=== PATIENT | male | born 1955 | race Caucasian/White ===

== ENCOUNTER 2017-02-24 16:06 | Inpatient (IN) | payer OTHER ==
[~2017-02-24] VITALS: Ht 190.5 cm; Wt 139.6 kg
[2017-02-24 17:18] LABS: BASOPHIL COUNT 0.1 K/uL (0-0.1); EOSINOPHIL (%) 0.1 % (0-5); HEMATOCRIT 45.4 % (38.0-50.0); IMMATURE GRANULOCYTE (%) 4.8 % (0.0-0.7); IMMATURE GRANULOCYTE COUNT 0.4 K/uL; INSTRUMENT ABS NEUTROPHIL CT 5.3 K/uL; LYMPHOCYTE COUNT 0.7 K/uL (1.0-2.8); MCH 25.8 PG (29.0-34.0); MCHC 29.5 G/DL (30.0-36.0); MCV 87.3 FL (86-99); MEAN PLAT.VOLUME 12.4 uM^3 (9.0-12.4); MONOCYTE (%) 13.3 % (3-12); NEUTROPHIL (%) 71.1 % (45-76); NEUTROPHIL COUNT 5.3 K/uL (1.8-6.4); PLATELET COUNT 293 K/uL (156-360); RBC DIS.WIDTH-CV 18.3 % (11.8-14.6); RBC DIS.WIDTH-SD 57.7 % (39-53); WHITE BLOOD COUNT 7.5 K/uL (4.1-10.2)
[2017-02-24 17:19] LABS: CARBON DIOXIDE (BICARBONATE) 15.6 MEQ/L (20-31)
[2017-02-24 17:20] LABS: CHLORIDE 103 mEq/L (99-109); POTASSIUM 4.7 mEq/L (3.7-5.4); SODIUM 137 mEq/L (136-147)
[2017-02-24 17:24] LABS: ANION GAP 21 MEQ/L (2-14); GLUCOSE 611 mg/dL (70-99)
[2017-02-24 17:25] LABS: TOTAL BILIRUBIN 0.5 mg/dL (0.0-1.0)
[2017-02-24 17:26] LABS: ALKALINE PHOSPHATASE 73 IU/L (3-129); SERUM ETHYL ALCOHOL < 10 mg/dL
[2017-02-24 17:27] LABS: GFR ESTIMATE (CALCULATED) 31 mL/min/
[2017-02-24 17:28] LABS: UREA NITROGEN (BUN) 41 mg/dL (9-23)
[2017-02-24 17:30] LABS: CREATINE KINASE 77 IU/L (1-294); LIPASE 66 U/L (1.0-51.0)
[2017-02-24 17:32] LABS: TROP-I INTERPRETATION NEGATIVE; TROPONIN-I 0.03 ng/mL (0.0-0.30)
[2017-02-24] MEDS ORDERED: ADVAIR 500/501 DISK IH (19:43)
[2017-02-24] MEDS ORDERED: ALBUTEROL2.5 MG/3 M IH (19:44)
[2017-02-24] MEDS ORDERED: THEOPHYLLINE400 MG PO (19:45)
[2017-02-24] MEDS ORDERED: DUONEB 2.5-0.5 M3 ML AEROSOL (19:45)
[2017-02-24] MEDS ORDERED: PROAIR HFA8.5 GM IH (19:45)
[2017-02-24] MEDS ORDERED: ATORVASTATIN CA40 MG PO (19:46)
[2017-02-24] MEDS ORDERED: FLUOXETINE HCL20 M1 PO (19:46)
[2017-02-24] MEDS ORDERED: JANUVIA100 MG PO (19:46)
[2017-02-24] MEDS ORDERED: LISINOPRIL10 MG PO (19:46)
[2017-02-24] MEDS ORDERED: NEURONTIN100 MG PO (19:47)
[2017-02-24] MEDS ORDERED: PRANDIN2 MG PO (19:47)
[2017-02-24] MEDS ORDERED: METOCLOPRAMIDE10 MG PO (19:47)
[2017-02-24 19:53] LABS: Estimated Average Glucose 404 mg/dL (70-123)
[2017-02-24 19:56] LABS: HEMOGLOBIN A1c (GLYCOHEMOGLOB) 15.7 % HGB (Below 5.7)
[2017-02-24 20:12] LABS: POINT-OF-CARE METER ID UU13113702
[2017-02-24 20:12] LABS: ADD MIUA? YES; BILIRUBIN NEGATIVE; BLOOD SMALL; COLOR YELLOW ((YELLOW)); GLUCOSE (STRIP) >=500; KETONES 80; LEUKOCYTES NEGATIVE; NITRITE NEGATIVE; PROTEIN (STRIP) 30; SPECIFIC GRAVITY 1.026 (1.000-1.030); UROBILINOGEN 0.2 MG/DL (0.2-1.0)
[2017-02-24 20:15] VITALS: BP 129/65
[2017-02-24 20:19] VITALS: BP 129/65
[2017-02-24 20:31] LABS: AMPHETAMINE NEGATIVE (500 ng/mL); BARBITURATES NEGATIVE (200 ng/mL); BENZODIAZEPINES NEGATIVE (150 ng/mL); COCAINE NEGATIVE (150 ng/mL); INTERNAL CONTROLS VALID? YES; METHADONE NEGATIVE (200 ng/mL); METHAMPHETAMINE NEGATIVE (500 ng/mL); OPIATES (MORPHINE) NEGATIVE (100 ng/mL); OXYCODONE NEGATIVE (100 ng/mL); PHENCYCLIDINE NEGATIVE (25 ng/mL); PROPOXYPHENE NEGATIVE (300 ng/mL); THC CANNABINOIDS NEGATIVE (50 ng/mL); TRICYCLIC ANTIDEPRESSANTS NEGATIVE (300 ng/mL)
[2017-02-24 21:00] VITALS: BP 107/46
[2017-02-24 21:03] LABS: RED BLOOD CELLS NONE SEEN /HPF (0-5)
[2017-02-24 21:06] LABS: EPITHELIAL CELLS RARE /HPF; WHITE BLOOD CELLS RARE /HPF (0-5)
[2017-02-24 21:07] LABS: BACTERIA RARE /HPF; CASTS PRESENT /LPF; CRYSTALS NONE SEEN; MUCUS RARE /LPF; UCUL ADDED? NO
[2017-02-24 21:09] LABS: COARSE GRANULAR CASTS RARE /LPF; OTHER BUDDING YEAST OCC.
[2017-02-24 21:20] LABS: ANION GAP 16 MEQ/L (2-14); CHLORIDE 108 MEQ/L (99-109); MAGNESIUM 2.4 mg/dl (1.3-2.7); SAMPLE HEMOLYSIS CHECK 0; SAMPLE ICTERIC CHECK 0; SAMPLE LIPEMIA CHECK 0; SODIUM 139 MEQ/L (136-147)
[2017-02-24 21:25] LABS: GFR ESTIMATE (CALCULATED) 54 mL/min/; GLUCOSE 320 mg/dL (70-99); UREA NITROGEN (BUN) 38 mg/dL (9-23)
[2017-02-24 22:00] VITALS: BP 0/0; BP 119/49
[2017-02-24 22:03] LABS: METH RESISTANT S AUREUS PCR NEGATIVE (NEGATIVE)
[2017-02-24 22:11] LABS: PROBE CHECK PASS; SPECIMEN PROCESSING CONTROL PASS
[2017-02-24 23:00] VITALS: BP 0/0; BP 118/50
[2017-02-25] VITALS (19 sets, daily range): BP systolic 0–159; BP diastolic 0–64
[2017-02-25 01:05] LABS: CHLORIDE 112 mEq/L (99-109); POTASSIUM 3.9 mEq/L (3.7-5.4); SODIUM 143 mEq/L (136-147)
[2017-02-25 01:06] LABS: GLUCOSE 261 mg/dL (70-99)
[2017-02-25 01:08] LABS: ANION GAP 14 MEQ/L (2-14)
[2017-02-25 01:10] LABS: GFR ESTIMATE (CALCULATED) 47 mL/min/
[2017-02-25 01:11] LABS: UREA NITROGEN (BUN) 37 mg/dL (9-23)
[2017-02-25 01:32] LABS: POINT-OF-CARE METER ID UU13113803; POINT-OF-CARE USER ID 609231305
[2017-02-25 03:46] LABS: POINT-OF-CARE METER ID UU13113803
[2017-02-25 05:01] LABS: POINT-OF-CARE METER ID UU14162636
[2017-02-25 05:25] LABS: MCH 25.8 PG (29.0-34.0); MCHC 29.5 G/DL (30.0-36.0); MCV 87.4 FL (86-99); MEAN PLAT.VOLUME 12.5 uM^3 (9.0-12.4); PLATELET COUNT 250 K/uL (156-360); RBC DIS.WIDTH-CV 18.3 % (11.8-14.6); RBC DIS.WIDTH-SD 57.6 % (39-53); RED BLOOD COUNT 4.46 M/uL (4.00-5.50); WHITE BLOOD COUNT 7.4 K/uL (4.1-10.2)
[2017-02-25 05:43] LABS: POINT-OF-CARE METER ID UU13113803
[2017-02-25 06:37] LABS: ANION GAP 14 MEQ/L (2-14); CHLORIDE 111 MEQ/L (99-109); GFR ESTIMATE (CALCULATED) > 59 mL/min/; GLUCOSE 166 mg/dL (70-99); MAGNESIUM 2.4 mg/dl (1.3-2.7); POTASSIUM 3.8 MEQ/L (3.7-5.4); SAMPLE HEMOLYSIS CHECK 0; SAMPLE ICTERIC CHECK 0; SAMPLE LIPEMIA CHECK 0; SODIUM 144 MEQ/L (136-147); UREA NITROGEN (BUN) 36 mg/dL (9-23)
[2017-02-25 06:50] LABS: POINT-OF-CARE METER ID UU14162636
[2017-02-25 08:03] LABS: POINT-OF-CARE METER ID UU14162636
[2017-02-25 08:57] LABS: ANION GAP 12 MEQ/L (2-14); CHLORIDE 110 MEQ/L (99-109); GFR ESTIMATE (CALCULATED) > 59 mL/min/; GLUCOSE 220 mg/dL (70-99); POTASSIUM 3.7 MEQ/L (3.7-5.4); SAMPLE HEMOLYSIS CHECK 0; SAMPLE ICTERIC CHECK 0; SAMPLE LIPEMIA CHECK 0; SODIUM 143 MEQ/L (136-147); UREA NITROGEN (BUN) 35 mg/dL (9-23)
[2017-02-25 09:03] LABS: POINT-OF-CARE METER ID UU13113731
[2017-02-25 10:06] LABS: POINT-OF-CARE METER ID UU13113731
[2017-02-25 11:17] LABS: POINT-OF-CARE METER ID UU13113731
[2017-02-25 12:21] LABS: POINT-OF-CARE METER ID UU13113731
[2017-02-25 12:52] LABS: ANION GAP 10 MEQ/L (2-14); CHLORIDE 112 MEQ/L (99-109); GFR ESTIMATE (CALCULATED) > 59 mL/min/; GLUCOSE 150 mg/dL (70-99); POTASSIUM 3.4 MEQ/L (3.7-5.4); SAMPLE HEMOLYSIS CHECK 0; SAMPLE ICTERIC CHECK 0; SAMPLE LIPEMIA CHECK 0; SODIUM 146 MEQ/L (136-147); UREA NITROGEN (BUN) 32 mg/dL (9-23)
[2017-02-25 13:02] LABS: POINT-OF-CARE METER ID UU13113731
[2017-02-25 14:22] LABS: POINT-OF-CARE METER ID UU13113731
[2017-02-25 15:20] LABS: POINT-OF-CARE METER ID UU13113731
[2017-02-25 16:20] LABS: POINT-OF-CARE METER ID UU13113731
[2017-02-25 16:24] LABS: ANION GAP 12 MEQ/L (2-14); CHLORIDE 109 MEQ/L (99-109); GFR ESTIMATE (CALCULATED) > 59 mL/min/; GLUCOSE 160 mg/dL (70-99); POTASSIUM 3.3 MEQ/L (3.7-5.4); SAMPLE HEMOLYSIS CHECK 0; SAMPLE ICTERIC CHECK 0; SAMPLE LIPEMIA CHECK 0; SODIUM 143 MEQ/L (136-147); UREA NITROGEN (BUN) 32 mg/dL (9-23)
[2017-02-25 18:12] LABS: POINT-OF-CARE METER ID UU13113803
[2017-02-25 22:38] LABS: POINT-OF-CARE METER ID UU13113803
[2017-02-26] VITALS (13 sets, daily range): BP systolic 90–136; BP diastolic 28–82
[2017-02-26 05:36] LABS: HEMATOCRIT 37.5 % (38.0-50.0); MCH 25.8 PG (29.0-34.0); MCHC 29.6 G/DL (30.0-36.0); MEAN PLAT.VOLUME 12.2 uM^3 (9.0-12.4); PLATELET COUNT 229 K/uL (156-360); RBC DIS.WIDTH-CV 18.3 % (11.8-14.6); RBC DIS.WIDTH-SD 57.8 % (39-53); RED BLOOD COUNT 4.31 M/uL (4.00-5.50); WHITE BLOOD COUNT 5.5 K/uL (4.1-10.2)
[2017-02-26 06:03] LABS: ANION GAP 9 MEQ/L (2-14); CHLORIDE 107 MEQ/L (99-109); GFR ESTIMATE (CALCULATED) > 59 mL/min/; GLUCOSE 300 mg/dL (70-99); MAGNESIUM 2.5 mg/dl (1.3-2.7); POTASSIUM 4.6 MEQ/L (3.7-5.4); SAMPLE HEMOLYSIS CHECK 0; SAMPLE ICTERIC CHECK 0; SAMPLE LIPEMIA CHECK 0; SODIUM 140 MEQ/L (136-147); UREA NITROGEN (BUN) 29 mg/dL (9-23)
[2017-02-26 11:08] LABS: POINT-OF-CARE METER ID UU13113702
[2017-02-26 11:30] LABS: POINT-OF-CARE METER ID UU14162636
[2017-02-26 16:56] LABS: POINT-OF-CARE METER ID UU14162636
[2017-02-26 22:53] LABS: POINT-OF-CARE METER ID UU14162636
[2017-02-27 01:08] VITALS: BP 111/52
[2017-02-27 05:26] LABS: MCH 26.1 PG (29.0-34.0); MCHC 30.3 G/DL (30.0-36.0); MCV 86.3 FL (86-99); MEAN PLAT.VOLUME 12.9 uM^3 (9.0-12.4); PLATELET COUNT 208 K/uL (156-360); RBC DIS.WIDTH-CV 18.4 % (11.8-14.6); RBC DIS.WIDTH-SD 57.8 % (39-53); RED BLOOD COUNT 3.94 M/uL (4.00-5.50); WHITE BLOOD COUNT 5.1 K/uL (4.1-10.2)
[2017-02-27 05:36] LABS: ANION GAP 9 MEQ/L (2-14); CHLORIDE 109 MEQ/L (99-109); GFR ESTIMATE (CALCULATED) > 59 mL/min/; GLUCOSE 238 mg/dL (70-99); MAGNESIUM 2.3 mg/dl (1.3-2.7); POTASSIUM 3.8 MEQ/L (3.7-5.4); SAMPLE HEMOLYSIS CHECK 0; SAMPLE ICTERIC CHECK 0; SAMPLE LIPEMIA CHECK 0; SODIUM 142 MEQ/L (136-147); UREA NITROGEN (BUN) 25 mg/dL (9-23)
[2017-02-27 07:34] VITALS: BP 103/57
[2017-02-27 11:45] LABS: POINT-OF-CARE METER ID UU14149397
[2017-02-27 14:42] LABS: POINT-OF-CARE METER ID UU14149397
[2017-02-27 15:13] VITALS: BP 118/55
[2017-02-27 17:02] LABS: POINT-OF-CARE METER ID UU14149397
[2017-02-27 23:36] VITALS: BP 114/58
[2017-02-28 05:23] LABS: HEMATOCRIT 32.9 % (38.0-50.0); MCH 26.4 PG (29.0-34.0); MCHC 30.4 G/DL (30.0-36.0); MCV 86.8 FL (86-99); MEAN PLAT.VOLUME 12.4 uM^3 (9.0-12.4); PLATELET COUNT 204 K/uL (156-360); RBC DIS.WIDTH-CV 18.6 % (11.8-14.6); RBC DIS.WIDTH-SD 58.2 % (39-53); RED BLOOD COUNT 3.79 M/uL (4.00-5.50); WHITE BLOOD COUNT 5.2 K/uL (4.1-10.2)
[2017-02-28 05:27] LABS: BASOPHIL COUNT 0.1 K/uL (0-0.1); EOSINOPHIL (%) 3.2 % (0-5); EOSINOPHIL COUNT 0.2 K/uL (0-0.3); HEMATOCRIT 33.6 % (38.0-50.0); IMMATURE GRANULOCYTE COUNT 0.3 K/uL; INSTRUMENT ABS NEUTROPHIL CT 2.4 K/uL; LYMPHOCYTE COUNT 1.3 K/uL (1.0-2.8); MCH 25.9 PG (29.0-34.0); MCHC 29.8 G/DL (30.0-36.0); MEAN PLAT.VOLUME 12.1 uM^3 (9.0-12.4); MONOCYTE (%) 18.2 % (3-12); MONOCYTE COUNT 0.9 K/uL (0-0.8); NEUTROPHIL (%) 46.5 % (45-76); NEUTROPHIL COUNT 2.4 K/uL (1.8-6.4); PLATELET COUNT 200 K/uL (156-360); RBC DIS.WIDTH-CV 18.6 % (11.8-14.6); RBC DIS.WIDTH-SD 58.3 % (39-53); RED BLOOD COUNT 3.86 M/uL (4.00-5.50); WHITE BLOOD COUNT 5.1 K/uL (4.1-10.2)
[2017-02-28 05:49] LABS: ALKALINE PHOSPHATASE 61 IU/L (3-129); ANION GAP 9 MEQ/L (2-14); CHLORIDE 106 MEQ/L (99-109); GFR ESTIMATE (CALCULATED) > 59 mL/min/; GLUCOSE 286 mg/dL (70-99); POTASSIUM 3.8 MEQ/L (3.7-5.4); SAMPLE HEMOLYSIS CHECK 0; SAMPLE ICTERIC CHECK 0; SAMPLE LIPEMIA CHECK 0; SODIUM 141 MEQ/L (136-147); TOTAL BILIRUBIN 0.5 MG/DL (0.0-1.0); UREA NITROGEN (BUN) 19 mg/dL (9-23)
[2017-02-28 05:50] LABS: ANION GAP 8 MEQ/L (2-14); CHLORIDE 106 MEQ/L (99-109); GFR ESTIMATE (CALCULATED) > 59 mL/min/; GLUCOSE 274 mg/dL (70-99); POTASSIUM 3.7 MEQ/L (3.7-5.4); SAMPLE HEMOLYSIS CHECK 0; SAMPLE ICTERIC CHECK 0; SAMPLE LIPEMIA CHECK 0; SODIUM 140 MEQ/L (136-147); UREA NITROGEN (BUN) 19 mg/dL (9-23)
[2017-02-28 08:06] VITALS: BP 119/78
[2017-02-28 16:18] VITALS: BP 121/59
[2017-02-28 16:54] LABS: POINT-OF-CARE METER ID UU14149397
[2017-02-28 21:28] LABS: POINT-OF-CARE METER ID UU14149397
[2017-02-28 23:48] VITALS: BP 133/58
[2017-03-01 05:35] LABS: HEMATOCRIT 31.2 % (38.0-50.0); MCH 26.4 PG (29.0-34.0); MCHC 30.1 G/DL (30.0-36.0); MCV 87.6 FL (86-99); MEAN PLAT.VOLUME 12.4 uM^3 (9.0-12.4); PLATELET COUNT 213 K/uL (156-360); RBC DIS.WIDTH-CV 18.7 % (11.8-14.6); RBC DIS.WIDTH-SD 58.8 % (39-53); RED BLOOD COUNT 3.56 M/uL (4.00-5.50)
[2017-03-01 05:37] LABS: WHITE BLOOD COUNT 6.9 K/uL (4.1-10.2)
[2017-03-01 05:39] LABS: ANION GAP 8 MEQ/L (2-14); CHLORIDE 104 MEQ/L (99-109); GFR ESTIMATE (CALCULATED) > 59 mL/min/; GLUCOSE 205 mg/dL (70-99); POTASSIUM 3.6 MEQ/L (3.7-5.4); SAMPLE HEMOLYSIS CHECK 0; SAMPLE ICTERIC CHECK 0; SAMPLE LIPEMIA CHECK 0; SODIUM 140 MEQ/L (136-147); UREA NITROGEN (BUN) 18 mg/dL (9-23)
[2017-03-01 07:23] VITALS: BP 141/65
[2017-03-01] MEDS ORDERED: LEVEMIR100 UNIT/2 SC (13:02)
[2017-03-01] MEDS ORDERED: NICOTINE PATCH1 EAC2 TD (13:02)
[2017-03-01] MEDS ORDERED: THERAGRAN1 TABLET PO (13:02)
[2017-03-01] MEDS ORDERED: NOVOLOG PE100 UNITS/ SC (13:02)
[2017-03-01] MEDS ORDERED: GLUCOMETER MC (15:09)
[2017-03-01 15:30] VITALS: BP 116/57
[2017-03-01 16:25] LABS: POINT-OF-CARE METER ID UU14149397
[2017-03-01] MEDS ORDERED: HUMALOG KW200 UNIT/1 SC (18:04)
[2017-03-01] MEDS ORDERED: LANTUS 3 M100 UNITS1 SC (18:04)
== END 2017-03-01 17:57 | disposition home health service (06) | DRG 638 ==
LOC: EME 16:06 → 4WEST 19:12 → EDOF 19:12 → 4WEST 20:11 → 3EAST 02-26 23:38
PROVIDERS: Emergency Medicine; Hospitalist; Internal Medicine
DX: E13.10 Other specified diabetes mellitus with ketoacidosis without coma (principal); C18.9 Malignant neoplasm of colon, unspecified; C79.89 Secondary malignant neoplasm of other specified sites; N17.9 Acute kidney failure, unspecified; F33.9 Major depressive disorder, recurrent, unspecified; Z91.128 Patient's intentional underdosing of medication regimen for other reason; E78.5 Hyperlipidemia, unspecified; J43.9 Emphysema, unspecified; N40.0 Benign prostatic hyperplasia without lower urinary tract symptoms; I10 Essential (primary) hypertension; F17.210 Nicotine dependence, cigarettes, uncomplicated; G47.30 Sleep apnea, unspecified; E66.01 Morbid (severe) obesity due to excess calories; Z68.38 Body mass index [BMI] 38.0-38.9, adult; Z99.89 Dependence on other enabling machines and devices; Z79.84 Long term (current) use of oral hypoglycemic drugs; Z79.4 Long term (current) use of insulin; Z09 Encounter for follow-up examination after completed treatment for conditions other than malignant neoplasm
CPT/HCPCS: 70450; 71010; 74176; 80048; 80048 91; 80053; 81003; 82010; 82550; 82803; 82948; 83036; 83690; 83735; 84100; 84484; 85025; 85027; 87641; 93005; 94640; 94640 76; 94660; 94799; 99202; 99281; 99285; G0480; J1644; J1815; J7030; J7040; J7050; J7120; S0028